=== PATIENT | female | born 1980 | race Caucasian/White ===

== ENCOUNTER 2017-04-13 13:06 | Emergency (ER) | payer BC, OTHER ==
[2017-04-13 13:15] VITALS: BP 179/86; BMI 44.1
--- NOTE | 2017-04-13 14:26 | DR.EXTPAIN ---
HPI - Time seen Time seen: 14:20 - PCP Primary Care Physician: KURT PERALTA - Complaint/Symptoms Chief Complaint Doctor Comments: Patient states that she fell four days ago now her right lower extremity is swollen and hurts Chief Complaint:: BRUISING TO RIGHT INNER LOWER LEG WITH SWELLING AND PAIN TO THE LEG AND ANKLE - Source History Provided: Patient - Mode of arrival Mode of Arrival: Ambulatory - Timing Onset of Chief Complaint: 04/10/17 PMH - PMH Past Medical History: Yes Past Medical History: Anxiety, Hypertension Past Surgical History: Yes Surgical History: Cholecystectomy - Family History History of Family Medical Conditions: Yes Family Medical History: Diabetes Mellitus, Hypertension - Social History Alcohol Use: Rarely Do you use any recreational Drugs:: No Lives With: Family Lives Where: Home - infectious screening In the last 2 months have you had wt loss of >10#?: NO Have you had fever, night sweats or hemotysis?: No Have you traveled outside the country in the last 6 months?: No Isolation: Standard ROS - Review of Systems Constitutional: No Symptoms Reported Eyes: No Symptoms Reported ENTM: No Symptoms Reported Respiratoy: No Symptoms Reported Cardiovascular: No Symptoms Reported Gastrointestinal/Abdominal: No Symptoms Reported Genitourinary: No Symptoms Reported Neurological: No Symptoms Reported Musculoskeletal: Leg (right bruised) Integumentary: Change in Color (RLE) Hematologic/Lymphatic: No Symptoms Reported Endocrine: No Symptoms Reported Psychiatric: No Symptoms Reported All Other Systems: Reviewed and Negative PE - Vital Signs Vitals: Temperature 98.3 F Pulse Rate 77 Respiratory Rate 14 Blood Pressure 179/86 O2 Sat by Pulse Oximetry 99 - General Limitations: No Limitations General Appearance: Alert, In No Apparent Distress - Head Head Exam: Normal Inspection, Atraumatic - Eyes Eye exam: Normal Appearance, PERRL, EOMI - ENT ENT Exam: Normal Exam - Neck Neck Exam: Normal Inspection - Chest Chest Inspection: Normal Inspection - Respiratory Respiratory Exam: Normal Lung Sounds Bilat Respiratory Exam: Bilateral Clear to Auscultation - Cardiovascular Cardiovascular Exam: Regular Rate, Normal Rhythm - Abdominal Exam Abdominal Exam: Normal Inspection, Normal Bowel Sounds Abdominal Tenderness: negative: RUQ, RLQ, LUQ, LLQ, Epigastrium, Suprapubic, Diffuse, Mild, Moderate, Severe, Other - Extremities Extremities Exam: Tenderness (anterior aspect of right lower mid way), Other ( bruising). negative: Calf Tenderness - Upper Extremities Shoulder Exam: Normal Inspection Arm Exam: Normal Inspection Elbow Exam: Normal Inspection Forearm Exam: Normal Inspection Hand Exam: Normal Inspection Neuromotor Exam: Normal Exam Neurosensory Exam: Normal Exam Hand Tendon Exam: Flexor Digitorium Profundus (Location) Upper Ext. Vascular Exam: Capillary Refill - Lower Extremities Hip/Pelvis Exam: Normal Inspection Upper Leg Exam: Normal Inspection Knee Exam: Normal Inspection Lower Leg Exam: Normal Inspection Ankle Exam: Normal Inspection Foot/Toe Exam: Normal Inspection Neurovascular/Tendon Exam: Normal Capillary Refill Gait Exam: Observed and Normal - Back Back Exam: Normal Inspection - Neurological Neurological Exam: Alert, Oriented X3, CN II-XII Intact - Psychiatric Psychiatric Exam: Normal Affect, Normal Mood - Skin Skin Exam: Warm, Dry, Intact, Cyanosis (ecchymosis RLE) Type of Lesion: Rash, Abscess ROR - Labs Reviewed Laboratory Results Reviewed?: Yes (D Dimer 299) Laboratory: D-Dimer 299 ng/mL (0-400) 04/13/17 14:35 - XRAY XRAY Interpreted by: Radiologist (Ankle Right: No acute findings) - Diagnosis Discharge Problem: Ankle sprain Qualifiers: Encounter type: initial encounter Involved ligament of ankle: calcaneofibular ligament Laterality: right Qualified Code(s): S93.411A - Sprain of calcaneofibular ligament of right ankle, initial encounter - Discharge Plan Condition: Stable - Follow ups/Referrals Follow ups/Referrals: KURT PERALTA [Primary Care Provider] - 3 days - Instructions
--- NOTE | 2017-04-13 15:50 | RAD ---
HISTORY: Injury, fall, right ankle pain and swelling Study: Right ankle three view Comparison: None Findings: There is no evidence for acute bone or acute joint abnormality. No fracture, lytic, or blastic lesio n is identified. No joint erosion or joint effusion is present. There is some osteophyte formation o n the anterior aspect of the distal tibia possibly related to arthritis or old trauma. IMPRESSION: No acute findings Reported By:
== END 2017-04-13 16:05 | disposition home or self-care (01) ==
LOC: ER 13:30
DX: S93.411A Sprain of calcaneofibular ligament of right ankle, initial encounter (principal); W19.XXXA Unspecified fall, initial encounter; Y92.9 Unspecified place or not applicable
CPT/HCPCS: 36415; 73610; 85378; 99282

== ENCOUNTER → 2017-11-30 | Outpatient (CLI) | payer BC, OTHER ==
[2017-11-30 13:03] LABS: BILIRUBIN,URINE NEGATIVE (NEGATIVE); BLOOD/HEMOGLOBIN,URINE 1+ (NEGATIVE); GLUCOSE, URINE NEGATIVE (NEGATIVE); KETONES,URINE NEGATIVE (NEGATIVE); LEUKOCYTE ESTERASE ,URINE 3+ (NEGATIVE); NITRITES,URINE NEGATIVE (NEGATIVE); PROTEIN,URINE NEGATIVE (NEGATIVE); UROBILINOGEN,URINE NORMAL (NORMAL)
[2017-11-30 13:04] LABS: BASOPHILS # (AUTO) 0.1 X10^3/uL (0.0-0.1); BASOPHILS % (AUTO) 1.1 % (0.2-1.0); EOSINOPHILS # (AUTO) 0.3 x10^3/uL (0.0-0.2); EOSINOPHILS % (AUTO) 2.4 % (0.9-2.9); HEMATOCRIT 38.9 % (36.0-47.0); HEMOGLOBIN 13.5 g/dL (12.0-16.0); LYMPHOCYTES % (AUTO) 27.7 % (21.0-51.0); MEAN CORPUSCULAR HGB CONC 34.7 g/dL (33.0-35.0); MEAN CORPUSCULAR VOLUME 86.6 fL (80.0-100.0); MEAN PLATELET VOLUME 8.5 fL (7.4-11.0); MONOCYTES # (AUTO) 0.7 x10^3/uL (0.3-0.8); MONOCYTES % (AUTO) 6.7 % (0.0-13.0); NEUTROPHILS # (AUTO) 6.8 x10^3/uL (2.2-4.8); NEUTROPHILS % (AUTO) 62.1 % (42.0-75.0); PLATELET COUNT 394 X10^3/uL (150.0-450.0); RED BLOOD COUNT 4.49 X10^6/uL (3.5-5.4); WHITE BLOOD COUNT 10.9 X10^3/uL (3.6-10.0)
[2017-11-30 13:13] LABS: BLOOD UREA NITROGEN 12 mg/dL (7-18); CALCIUM 9.1 mg/dL (8.5-10.1); CARBON DIOXIDE 26.5 mmol/L (21-32); CHLORIDE 101 mmol/L (98-107); CREATININE 0.83 mg/dL (0.55-1.02); SODIUM 138 mmol/L (136-145); eGFR BLACK RACES > 60 (>60); eGFR NON BLACK RACES > 60 (>60)
[2017-11-30 13:16] LABS: AMORPHOUS SEDIMENT,UR TRACE /HPF (NEGATIVE); APPEARANCE,URINE SLIGHTLY HAZY (CLEAR); BACTERIA,URINE TRACE /HPF (NEGATIVE); COLOR,URINE YELLOW (YELLOW); SQUAMOUS EPITHELIAL CELL,UR MANY /HPF (NEGATIVE)
[2017-11-30 13:24] LABS: SERUM PREGNANCY TEST, QUAL NEGATIVE <10 mIU/mL
== END ==
LOC: LAB 12:26
PROVIDERS: ATTEND Specialist
DX: Z01.818 Encounter for other preprocedural examination (principal); Z32.00 Encounter for pregnancy test, result unknown; Z30.2 Encounter for sterilization
CPT/HCPCS: 36415; 80048; 81001; 84703; 85025; 85610; 85730; 86850; 86900; 86901; 87086

== ENCOUNTER 2017-12-07 06:34 | Day surgery (SDC) | payer BC, OTHER ==
[2017-12-07] MEDS ORDERED: D5 1/2 NS 1000 ML 1,000 ML IV ONE (06:35)
[2017-12-07] MEDS ORDERED: ANCEF VIAL 1 GM ONE (06:37)
[2017-12-07] MEDS ORDERED: NS 100 ML IV 100 ML IV ONE (06:37)
[2017-12-07] MEDS ORDERED: FENTANYL INJ 250 mcg ONE (07:11)
[2017-12-07] MEDS ORDERED: NS IRRIGATION 1000 ML 1,000 ML IR ONE (07:15)
[2017-12-07] MEDS ORDERED: DILAUDID INJ IVP PRN (08:37)
[2017-12-07] MEDS ORDERED: PHENERGAN INJ 25 MG IVP PRN (08:37)
[2017-12-07] MEDS ORDERED: BENADRYL INJ 50 MG VIAL IVP PRN (08:37)
[2017-12-07] MEDS ORDERED: ZOFRAN INJ 4 MG VIAL IVP PRN (08:37)
[2017-12-07] MEDS ORDERED: REGLAN INJ 10 MG VIAL IVP PRN (08:37)
[2017-12-07] MEDS ORDERED: TORADOL 30 MG VIAL IVP ONE (09:03)
[2017-12-07 10:56] VITALS: BP 130/79
[2017-12-07] MEDS ORDERED: ZOFRAN INJ 4 MG VIAL ONE (15:43)
[2017-12-07] MEDS ORDERED: XYLOCAINE 2 % (PLAIN) ONE (15:43)
[2017-12-07] MEDS ORDERED: REGLAN INJ 10 MG VIAL ONE (15:43)
[2017-12-07] MEDS ORDERED: ROBINUL ONE (15:43)
[2017-12-07] MEDS ORDERED: NORCURON INJ 10 MG VIAL ONE (15:43)
[2017-12-07] MEDS ORDERED: NEOSTIGMINE INJ ONE (15:43)
[2017-12-07] MEDS ORDERED: VERSED ONE (15:43)
[2017-12-07] MEDS ORDERED: SUPRANE IN ONE (15:43)
[2017-12-07] MEDS ORDERED: LTA KIT LIDOCAINE 4% ONE (15:43)
[2017-12-07] MEDS ORDERED: DIPRIVAN VIAL ONE (15:43)
[2017-12-07] MEDS ORDERED: QUELICIN (OR ANECTINE) ONE (15:43)
== END 2017-12-07 10:25 | disposition home or self-care (01) | DRG 745 ==
LOC: SURG1 06:34
PROVIDERS: ATTEND Specialist
PROC: 0U574ZZ Destruction of Bilateral Fallopian Tubes, Percutaneous Endoscopic Approach (ICD-10-PCS; principal; 2017-12-07 07:30)
DX: Z30.2 Encounter for sterilization (principal)
CPT/HCPCS: A4216; A4222; J0330; J0690; J1885; J2001; J2250; J2405; J2710; J2765; J3010; J3490; J7042